=== PATIENT | male | born 1945 | race Caucasian/White ===

== ENCOUNTER → 2019-03-13 | Outpatient (CLI) | payer MEDICARE ==
[2019-03-13 09:38] LABS: HEMOGLOBIN A1C 7.6 % (4.5-6.2)
== END ==
LOC: LB.CLINIC 08:02
PROVIDERS: ATTEND Nurse Practitioner Family
DX: Z12.5 Encounter for screening for malignant neoplasm of prostate (principal); E11.9 Type 2 diabetes mellitus without complications; E78.5 Hyperlipidemia, unspecified; I11.0 Hypertensive heart disease with heart failure
CPT/HCPCS: 36415; 80053; 80061; 82043; 83036; 85025; G0103

== ENCOUNTER 2019-12-10 15:02 | Emergency (ER) | payer MEDICARE ==
[2019-12-10] MEDS ORDERED: fentaNYL 100 MCG/2 ML SDV IVPUSH ONE (16:07)
[2019-12-10] MEDS ORDERED: Sodium Chloride 0.9% 1,000 ML IV SCH (16:15)
--- NOTE | 2019-12-10 17:23 | EDM.PDOC ---
ED HPI GENERAL MEDICAL PROBLEM - General Chief Complaint: General Stated Complaint: ABD PAIN Time Seen by Provider: 12/10/19 15:10 Source of Information: Reports: Patient History Limitations: Reports: No Limitations - History of Present Illness INITIAL COMMENTS - FREE TEXT/NARRATIVE: Developed left sided abdominal pain LLQ, LUQ around 1200 today. Denies any injury, urinary issues, CVA tenderness, CP, n/v/d, SOB. The pain is described as a pressure, without any radiation. He did have a short episode of nausea without vomiting that has since resolved. Onset: Today, Sudden Onset Date: 12/10/19 Onset Time: 12:00 Duration: Colic, Waxing/Waning Location: Reports: Abdomen Quality: Reports: Pressure Severity: Moderate Improves with: Reports: None Worsens with: Reports: None Associated Symptoms: Reports: No Other Symptoms Left Abdominal Pain Score (Numeric/FACES): 6 - Related Data Allergies Allergy/AdvReac Type Severity Reaction Status Date / Time No Known Allergies Allergy Verified 12/10/19 16:11 Home Meds: Home Meds Naproxen Sodium [Aleve] 1 tab PO Q12H 12/10/19 [History] amLODIPine [Norvasc] 5 mg PO DAILY 12/10/19 [History] atorvaSTATin [Lipitor] 10 mg PO BEDTIME 12/10/19 [History] lisinopriL [Lisinopril] 10 mg PO DAILY 12/10/19 [History] metFORMIN [Glucophage] 1,000 mg PO BEDTIME 12/10/19 [History] metFORMIN [Glucophage] 500 mg PO DAILY 12/10/19 [History] Past Medical History Endocrine/Metabolic History: Reports: Diabetes, Type II - Past Surgical History GI Surgical History: Reports: Appendectomy Musculoskeletal Surgical History: Reports: Hip Replacement Social & Family History - Family History Family Medical History: Noncontributory - Tobacco Use Smoking Status *Q: Never Smoker Second Hand Smoke Exposure: No - Caffeine Use Caffeine Use: Reports: Coffee - Recreational Drug Use Recreational Drug Use: No ED ROS GENERAL - Review of Systems Review Of Systems: See Below Constitutional: Reports: No Symptoms HEENT: Reports: No Symptoms Respiratory: Reports: No Symptoms Cardiovascular: Reports: No Symptoms Endocrine: Reports: No Symptoms GI/Abdominal: Reports: Abdominal Pain, Nausea. Denies: Black Stool, Bloody Stool, Constipation, Diarrhea, Hematemesis, Vomiting : Reports: No Symptoms. Denies: Dysuria, Flank Pain, Frequency, Hematuria, Incontinence, Urgency Musculoskeletal: Reports: No Symptoms Skin: Reports: No Symptoms Neurological: Reports: No Symptoms Psychiatric: Reports: No Symptoms Hematologic/Lymphatic: Reports: No Symptoms ED EXAM, GENERAL - Physical Exam Exam: See Below Exam Limited By: No Limitations General Appearance: Alert, Mild Distress Respiratory/Chest: No Respiratory Distress, Normal Breath Sounds, No Accessory Muscle Use, Chest Non-Tender Cardiovascular: Regular Rate, Rhythm, No Murmur GI/Abdominal: Normal Bowel Sounds, Tender Back Exam: Normal Inspection. No: CVA Tenderness (R), CVA Tenderness (L) Extremities: Normal Inspection Neurological: Alert, Oriented, Normal Cognition Psychiatric: Normal Affect Skin Exam: Warm, Dry, Intact Lymphatic: No Adenopathy Course - Vital Signs Last Recorded V/S: Last Vital Signs Temp 97.8 F 12/10/19 15:57 Pulse 78 12/10/19 15:57 Resp 16 12/10/19 15:57 BP 145/82 H 12/10/19 15:57 Pulse Ox 96 12/10/19 15:57 - Orders/Labs/Meds Orders: Active Orders 24 hr Category Date Time Status EKG Documentation Completion [RC] ASDIRECTED Care 12/10/19 17:24 Active Abdomen Pelvis w Cont [CT] Stat Exams 12/10/19 16:04 Taken UA W/MICROSCOPIC [URIN] Stat Lab 12/10/19 16:04 Ordered Diatrizoate Glendy/Diatrizoate Na [Gastrografin 37%] Med 12/10/19 17:47 Active 30 ml PO . DIRECTED Iodixanol [Visipaque 320] Med 12/10/19 17:48 Active 100 ml IV . DIRECTED Sodium Chloride 0.9% [Normal Saline] 1,000 ml Med 12/10/19 16:15 Active IV ASDIRECTED Medication Orders Diatrizoate Meglum/Diatrizoate Sod (Gastrografin 37%) 30 ml PO . DIRECTED [facility] Sodium Chloride (Normal Saline) 1,000 mls @ 125 mls/hr IV ASDIRECTED [facility] Last Admin: 12/10/19 16:35 Dose: 125 mls/hr Documented by: NAYELI Iodixanol (Visipaque 320) 100 ml IV . DIRECTED [facility] Labs: Laboratory Tests 12/10/19 12/10/19 12/10/19 Range/Units 16:15 16:15 17:15 WBC 9.3 D (4.0-11.0) K/uL RBC 4.98 (4.50-6.50) M/uL Hgb 15.1 (13.0-18.0) g/dL Hct 42.6 (40.0-54.0) % MCV 86 (76-96) fL MCH 30.3 (27.0-32.0) pg MCHC 35.4 H (31.0-35.0) g/dL RDW 13.3 (11.0-16.0) % Plt Count 188 (150-400) K/uL MPV 10.6 H (6.0-10.0) fL Neut % (Auto) 74.8 H (45.0-70.0) % Lymph % (Auto) 13.7 L (20.0-40.0) % Cloud % (Auto) 6.9 (3.0-10.0) % Eos % (Auto) 4.4 (1.0-5.0) % Baso % (Auto) 0.2 (0.0-0.5) % Neut # (Auto) 6.91 (2.00-7.50) K/uL Lymph # (Auto) 1.27 L (1.50-4.00) K/uL Cloud # (Auto) 0.64 (0.20-0.80) K/uL Eos # (Auto) 0.41 H (0.04-0.40) K/uL Baso # (Auto) 0.02 (0.02-0.10) K/uL Sodium 139 (136-145) mmol/L Potassium 4.0 (3.5-5.1) mmol/L Chloride 102 (98-107) mmol/L Carbon Dioxide 26.3 (21.0-32.0) mmol/L Anion Gap 14.7 (5.0-15.0) mmol/L BUN 16 (8-26) mg/dL Creatinine 0.93 (0.70-1.30) mg/dL Est Cr Clr Drug Dosing 77.56 mL/min Estimated GFR (MDRD) > 60 (>60) MLS/MIN BUN/Creatinine Ratio 17.2 (6-25) Glucose 242 H (74-100) mg/dL Calcium 9.1 (8.5-10.1) mg/dL Total Bilirubin 0.4 (0.0-1.0) mg/dL AST 20 (15-37) U/L ALT 27 (12-78) U/L Alkaline Phosphatase 101 (46-116) U/L Total Protein 7.5 (6.4-8.2) g/dL Albumin 3.8 (3.4-5.0) g/dL Globulin 3.7 (2.2-4.2) g/dL Albumin/Globulin Ratio 1.0 (0.8-2.0) Triglycerides 128 (30-150) mg/dL Lipase 71267 H* (73-393) U/L COVID-19 (AKIL) 12/10/19 Range/Units 18:20 WBC (4.0-11.0) K/uL RBC (4.50-6.50) M/uL Hgb (13.0-18.0) g/dL Hct (40.0-54.0) % MCV (76-96) fL MCH (27.0-32.0) pg MCHC (31.0-35.0) g/dL RDW (11.0-16.0) % Plt Count (150-400) K/uL MPV (6.0-10.0) fL Neut % (Auto) (45.0-70.0) % Lymph % (Auto) (20.0-40.0) % Cloud % (Auto) (3.0-10.0) % Eos % (Auto) (1.0-5.0) % Baso % (Auto) (0.0-0.5) % Neut # (Auto) (2.00-7.50) K/uL Lymph # (Auto) (1.50-4.00) K/uL Cloud # (Auto) (0.20-0.80) K/uL Eos # (Auto) (0.04-0.40) K/uL Baso # (Auto) (0.02-0.10) K/uL Sodium (136-145) mmol/L Potassium (3.5-5.1) mmol/L Chloride (98-107) mmol/L Carbon Dioxide (21.0-32.0) mmol/L Anion Gap (5.0-15.0) mmol/L BUN (8-26) mg/dL Creatinine (0.70-1.30) mg/dL Est Cr Clr Drug Dosing mL/min Estimated GFR (MDRD) (>60) MLS/MIN BUN/Creatinine Ratio (6-25) Glucose (74-100) mg/dL Calcium (8.5-10.1) mg/dL Total Bilirubin (0.0-1.0) mg/dL AST (15-37) U/L ALT (12-78) U/L Alkaline Phosphatase (46-116) U/L Total Protein (6.4-8.2) g/dL Albumin (3.4-5.0) g/dL Globulin (2.2-4.2) g/dL Albumin/Globulin Ratio (0.8-2.0) Triglycerides (30-150) mg/dL Lipase (73-393) U/L COVID-19 (AKIL) Negative Meds: Medications Generic Name Dose Route Start Last Admin Trade Name Freq PRN Reason Stop Dose Admin Diatrizoate Meglum/Diatrizoate Sod 30 ml 12/10/19 17:47 Gastrografin 37% PO . DIRECTED KEVIN Sodium Chloride 1,000 mls @ 125 mls/hr 12/10/19 16:15 12/10/19 16:35 Normal Saline IV 125 mls/hr ASDIRECTED KEVIN Administration Iodixanol 100 ml 12/10/19 17:48 Visipaque 320 IV . DIRECTED KEVIN Discontinued Medications Generic Name Dose Route Start Last Admin Trade Name Freq PRN Reason Stop Dose Admin Fentanyl 50 mcg 12/10/19 16:07 12/10/19 17:01 Sublimaze IVPUSH 12/10/19 16:08 50 mcg ONETIME ONE Administration Departure - Departure Time of Disposition: 19:59 Disposition: DC/Tfer to Acute Hospital 02 Condition: Good Clinical Impression: Pancreatitis, acute - Discharge Information *PRESCRIPTION DRUG MONITORING PROGRAM REVIEWED*: No *COPY OF PRESCRIPTION DRUG MONITORING REPORT IN PATIENT AMARILYS: No Referrals: PCP,None [Primary Care Provider] - Forms: ED Department Discharge Sepsis Event Note (ED) - Evaluation Sepsis Screening Result: No Definite Risk - Focused Exam Vital Signs: Vital Signs Temp Pulse Resp BP Pulse Ox 12/10/19 15:57 97.8 F 78 16 145/82 H 96 - Problem List & Annotations (1) Pancreatitis, acute SNOMED Code(s): 686326857 Code(s): K85.90 - ACUTE PANCREATITIS WITHOUT NECROSIS OR INFECTION, UNSP Status: Acute Current Visit: Yes Qualifiers: Pancreatitis type: unspecified pancreatitis type - My Orders Last 24 Hours: My Active Orders 12/10/19 16:04 Abdomen Pelvis w Cont [CT] Stat UA W/MICROSCOPIC [URIN] Stat 12/10/19 16:15 Sodium Chloride 0.9% [Normal Saline] 1,000 ml IV ASDIRECTED 12/10/19 17:24 EKG Documentation Completion [RC] ASDIRECTED 12/10/19 17:47 Diatrizoate Glendy/Diatrizoate Na [Gastrografin 37%] 30 ml PO . DIRECTED 12/10/19 17:48 Iodixanol [Visipaque 320] 100 ml IV . DIRECTED - Assessment/Plan Last 24 Hours: My Active Orders 12/10/19 16:04 Abdomen Pelvis w Cont [CT] Stat UA W/MICROSCOPIC [URIN] Stat 12/10/19 16:15 Sodium Chloride 0.9% [Normal Saline] 1,000 ml IV ASDIRECTED 12/10/19 17:24 EKG Documentation Completion [RC] ASDIRECTED 12/10/19 17:47 Diatrizoate Glendy/Diatrizoate Na [Gastrografin 37%] 30 ml PO . DIRECTED 12/10/19 17:48 Iodixanol [Visipaque 320] 100 ml IV . DIRECTED Plan: Negative rapid COVID, triglycerides 128
[2019-12-10] MEDS ORDERED: Diatrizoate Meglumine/Diatrizoate Sodium 37% 30 ML Bottle PO SCH (17:47)
[2019-12-10] MEDS ORDERED: Iodixanol 652 MG/ML 100 ML Bottle IV SCH (17:48)
--- NOTE | 2019-12-11 18:55 | CT ---
CLINICAL DATA: LLQ pain, r/o diverticulitis. ENHANCED ABDOMEN AND PELVIC CT, 10 DECEMBER 2019: Multislice acquisition through the abdomen and pelvis with IV and oral contrast was performed. No priors. There are emphysematous changes in both lower lungs. There are linear densities in both lung bases, consistent with linear atelectasis or fibrosis. The liver is normal size with homogeneous attenuation. No focal hepatic lesions. The gallbladder appears normal. There is diffuse atrophy of the pancreas. There is mild peripancreatic fat stranding involving the body, head, and uncinate process of the pancreas. Pancreatitis should be considered. I do not see a pancreatic mass. There is a 7 mm calcification at the head of the pancreas. No pancreatic duct dilatation. No biliary ductal dilatation. No evidence of abscess or phlegmon within the pancreas. The right and left adrenals appear normal. The right and left kidneys appear normal and enhance symmetrically. No hydronephrosis or hydroureter. The patient is status post left hip arthroplasty. This does produce beam hardening streak artifact, obscuring adjacent structures. The bladder is partially fluid-filled. It appears grossly normal. The prostate is enlarged. No evidence of appendicitis. There is diverticulosis of the transverse, descending, and sigmoid colon. No evidence of diverticulitis. No free air. No free fluid. No dilated loops of bowel. No adenopathy. No aortic aneurysm or dissection. There is a small fat-containing umbilical hernia. There are small fat- containing inguinal hernias. There is degenerative disk disease throughout the lower thoracic and lumbar spine. IMPRESSION: Abnormal pancreas, consistent with pancreatitis. Other findings, as discussed above. Job: [id number] MTDD
== END 2019-12-10 20:30 ==
LOC: LB.ED 15:02
DX: K85.90 Acute pancreatitis without necrosis or infection, unspecified (principal); E11.9 Type 2 diabetes mellitus without complications; Z20.828 Contact with and (suspected) exposure to other viral communicable diseases; Z90.49 Acquired absence of other specified parts of digestive tract; Z79.899 Other long term (current) drug therapy
CPT/HCPCS: 36415; 74177; 80053; 83690; 84478; 85025; 93005; 96374; 99285; A0425; A0429; J3010; J7030; U0002